=== PATIENT | female | born 1960 | race Caucasian/White ===

== ENCOUNTER 2017-02-19 15:51 | Day surgery (SDC) | payer OTHER ==
[~2017-02-19] VITALS: Ht 162.6 cm; Wt 72.0 kg
[2017-02-19] MEDS ORDERED: LACTATED RINGERS 1,000 ML IV SCH (16:24)
[2017-02-19 16:39] VITALS: BP 121/79
[2017-02-19] MEDS ORDERED: MIDAZOLAM 1 MG/ML, 2ML ONE (18:03)
[2017-02-19] MEDS ORDERED: FENTANYL PF 250 MCG/5ML ONE (18:03)
[2017-02-19] MEDS ORDERED: BUPIVACAINE/PF 0.25% ONE (18:07)
[2017-02-19] MEDS ORDERED: EPINEPHRINE 1 MG/ML, 1ML ONE (18:07)
[2017-02-19] MEDS ORDERED: DEXAMETHASONE 4 MG/ML, 1ML ONE (18:11)
[2017-02-19] MEDS ORDERED: KETAMINE 10 MG/ML, 20ML ONE ×2 (18:11→18:19)
[2017-02-19] MEDS ORDERED: ONDANSETRON 2MG/ML, 2ML ONE (18:11)
[2017-02-19] MEDS ORDERED: PROPOFOL 10 MG/ML, 20ML ONE (18:11)
[2017-02-19] MEDS ORDERED: CEFAZOLIN 1,000 MG ONE (18:11)
[2017-02-19] MEDS ORDERED: NEOSPORIN OINT, 15GM ONE (19:17)
[2017-02-19] MEDS ORDERED: HYDROmorphone 1 MG/ML, 1ML IV PRN (19:30)
[2017-02-19] MEDS ORDERED: OXYcodone 5 MG/5 ML ORAL.SOL UDC PO PRN (19:30)
[2017-02-19] MEDS ORDERED: PROMETHAZINE 25 MG/ML, 1ML IV PRN (19:30)
[2017-02-19] MEDS ORDERED: FENTANYL PF 100 MCG/2ML IV PRN (19:30)
[2017-02-19] MEDS ORDERED: ACETAMINOPHEN 325 MG TABLET PO PRN (19:30)
[2017-02-19] MEDS ORDERED: MEPERIDINE/PF 25MG/0.5ML IVPush PRN (19:30)
[2017-02-19] MEDS ORDERED: OXYcodone 5 MG/5 ML ORAL.SOL UDC ONE (19:36)
== END 2017-02-19 21:07 ==
LOC: OUT 15:51
PROVIDERS: ATTEND Plastic Surgery
DX: C44.319 Basal cell carcinoma of skin of other parts of face (principal)
CPT/HCPCS: 11642; 88304; 88331; J0171; J0690; J1100; J2250; J2405; J2704; J3010; J3490; J7120